=== PATIENT | female | born 1955 | race Hispanic/Latino ===

== ENCOUNTER 2019-04-03 08:01 | Outpatient (CLI) | payer MEDICARE, MEDICAID ==
--- NOTE | 2019-04-03 09:27 | CT ---
CT ABDOMEN WITH CONTRAST CT PELVIS WITH CONTRAST: COMPARISON: 12/02/2013. HISTORY: Weight loss. Abdominal pain. History of colon cancer and colon resection. Previous chemotherapy. FINDINGS: ABDOMEN CT: Stable 3 mm left lower lobe subpleural lymph node. Normal heart size. Visualized aorta has a normal caliber. No periaortic fat stranding. Portal vein is patent. Gallbladder is surgically absent. Liver, spleen, pancreas, and adrenal glands have appropriate attenuation and enhancement. Symmetric enhancement of the kidneys. Bilaterally, no obstructive uropathy. Subcentimeter hypodensi ty emanating from the lower pole of the right kidney is too small to further characterize. No mesenteric mass, lymphadenopathy, free air, or free fluid. Gastric mucosa, duodenum, and multiple normal-caliber small bowel loops. No evidence of small bowel obstruction. Ileocecal junction is normal. Appendix is not appreciated. No inflammation at the cec al apex. Contrast and fecal material are noted predominantly in the left hemicolon and transverse co jannette. There is diverticulosis in the right hemicolon. No diverticulitis. Anastomosis at the level o f the sigmoid colon is noted. No evidence of colon obstruction. PELVIC CT: Uterus and adnexal structures are unremarkable. No pelvic mass, lymphadenopathy, free air, or free f luid. Urinary bladder is unremarkable. No lytic or blastic lesions within the osseous structures. IMPRESSION: No acute abnormality in the abdomen or pelvis. POS: [facility]
[2019-04-03] MEDS ORDERED: ISOVUE-370 76%-LOCM 1 ML ONE (11:41)
== END 2019-04-03 08:02 | disposition home or self-care (01) ==
LOC: BICCT 08:01
PROVIDERS: ATTEND Internal Medicine Gastroenterology
DX: R10.9 Unspecified abdominal pain (principal)
CPT/HCPCS: 74177; 82565